=== PATIENT | male | born 1975 | race Caucasian/White ===

== ENCOUNTER 2019-03-27 15:58 | Emergency (ER) | payer BC ==
[~2019-03-27] VITALS: Ht 175.3 cm; Wt 72.6 kg
[~2019-03-27 15:58] MED LIST: PHENERGAN 25 MG25 MG PO; ULTRAM 50MG TAB50 MG PO; XANAX 0.5 MG0.5 M1 PO; ZOFRAN4 MG PO
[2019-03-27] MEDS ORDERED: XANAX 0.5 MG0.5 M1 PO (16:10)
[2019-03-27 16:35] LABS: ABSOLUTE BASOPHILS 0.1 thou/uL (0.0-0.2); ABSOLUTE EOSINOPHILS 0.3 thou/uL (0.0-0.7); ABSOLUTE LYMPHOCYTES 1.9 thou/uL (0.8-5.3); ABSOLUTE MONOCYTES 0.5 thou/uL (0.0-1.2); ABSOLUTE NEUTROPHILS 4.6 thou/uL (1.6-8.1); BASOPHILS 0.9 %; EOSINOPHILS 4.3 %; HEMATOCRIT 47.3 % (42.0-52.0); HEMOGLOBIN 16.5 gm/dL (14.0-18.0); LYMPHOCYTES 25.2 %; MCH 30.2 pg (26.0-34.0); MCV 86.4 fL (80.0-100.0); MONOCYTES 6.5 %; MPV 8.8 fl. (7.2-11.1); NUCLEATED RBCS 0 /100WBC; PLATELET COUNT* 235 thou/uL (150-400); POLYS 63.1 %; RBC 5.47 mil/uL (4.50-6.00); RDW-CV 13.7 % (10.5-14.5); WBC 7.4 thou/uL (4.0-11.0)
[2019-03-27 16:45] LABS: APTT 28.7 Seconds (25.0-31.3); CALCIUM 10.2 mg/dL (8.5-10.1); POTASSIUM 4.1 mmol/L (3.5-5.1); PROTIME 10.2 Seconds (9.20-11.50)
[2019-03-27 16:56] LABS: ALBUMIN 4.1 g/dL (3.4-5.0); TOTAL BILIRUBIN 0.6 mg/dL (<0.1-1.0); TOTAL PROTEIN 8.1 g/dL (6.4-8.2)
[2019-03-27] MEDS ORDERED: ULTRAM 50MG TAB50 MG PO (17:03)
[2019-03-27] MEDS ORDERED: NORCO 5-325 TA1 EAC1 PO (17:04)
[2019-03-27 17:10] VITALS: BP 135/97
--- NOTE | 2019-03-29 11:04 | EKG ---
[place] [address] ELECTROCARDIOGRAM REPORT Name: GOKUL STEEL [id number] Admission: 03/27/19 Attend Phys: Discharge: 03/27/19 Date of : 77 Report #: [id number] THIS REPORT FOR: //name// [facility] ED Test Date: 2019-03-27 Test Time: 16:08:18 Pat Name: GOKUL STEEL Department: Room: Gender: M Router Machine Operator: MS : 1975 Requested By: Jerry Soto Order Number: [id number] MD: Garrick Carrasco Measurements Intervals [place] Rate: 73 P: 84 IA: 131 QRS: 85 QRSD: 83 T: 58 QT: 341 QTc: 376 Interpretive Statements Sinus rhythm Probable left atrial enlargement ST elev, probable normal early repol pattern Baseline wander in lead(s) I,aVL No previous ECG available for comparison Electronically Signed On 03-29-2019 11:04:09 CDT by Garrick Carrasco [email or web address] <ELECTRONICALLY SIGNED> By: Garrick Carrasco MD, [facility] 03/29/19 1104 1608 1608 Garrick Carrasco MD, [facility] /EPI
== END 2019-03-27 17:11 | disposition home or self-care (01) ==
LOC: M.ERS 15:58
PROVIDERS: Family Medicine
DX: S00.83XA Contusion of other part of head, initial encounter (principal); F41.9 Anxiety disorder, unspecified; F32.9 Major depressive disorder, single episode, unspecified; I10 Essential (primary) hypertension; F17.210 Nicotine dependence, cigarettes, uncomplicated; W18.39XA Other fall on same level, initial encounter; Y93.89 Activity, other specified; Y92.89 Other specified places as the place of occurrence of the external cause; Y99.8 Other external cause status